=== PATIENT | female | born 1975 | race Caucasian/White ===

== ENCOUNTER 2018-06-17 06:52 | Day surgery (SDC) | payer OTHER | END 2018-06-17 18:30 | disposition home or self-care (01) | LOC: CIR.AMB 06:52 | DX: N64.82 Hypoplasia of breast (principal); N64.81 Ptosis of breast ==

== ENCOUNTER 2020-11-01 09:31 | Outpatient (CLI) | payer OTHER | END 2020-11-01 10:05 | disposition home or self-care (01) | LOC: MAMO-SONO 09:31 | PROVIDERS: ATTEND Obstetrics & Gynecology | DX: N64.59 Other signs and symptoms in breast (principal); Z12.31 Encounter for screening mammogram for malignant neoplasm of breast; E04.1 Nontoxic single thyroid nodule ==

== ENCOUNTER 2020-11-15 10:18 | Outpatient (CLI) | payer OTHER | END 2020-11-15 10:41 | disposition home or self-care (01) | LOC: SONOGRAMA 10:18 | PROVIDERS: ATTEND Obstetrics & Gynecology | DX: N94.0 Mittelschmerz (principal); R10.2 Pelvic and perineal pain; N94.89 Other specified conditions associated with female genital organs and menstrual cycle ==